=== PATIENT | female | born 1985 | race African-American/Black ===

== ENCOUNTER 2018-01-14 08:05 | Emergency (ER) | payer OTHER | END 2018-01-14 09:09 | disposition home or self-care (01) | LOC: SCSER 08:05 | DX: O99.511 Diseases of the respiratory system complicating pregnancy, first trimester (principal); J06.9 Acute upper respiratory infection, unspecified; Z3A.11 11 weeks gestation of pregnancy | CPT/HCPCS: 87804; 99283 ==

== ENCOUNTER 2018-01-31 11:06 | Emergency (ER) | payer OTHER ==
[2018-01-31 11:34] LABS: Bilirubin Negative (Negative); Blood, Urine Large (Negative); Clarity Clear (Clear); Glucose, Urine (Dipstick) Negative (Negative); Leukocyte Trace (Negative); Nitrite Negative (Negative); Protein, Urine (Dipstick) Negative (Neg-Trace); pH, Urine 6.5 (5.0-9.0)
[2018-01-31 11:46] LABS: Bacteria/HPF None Seen HPF (None Seen); RBC/HPF 0-3 HPF (0-3); WBC/HPF 0-3 HPF (0-3)
--- NOTE | 2018-01-31 14:14 | ULT ---
PELVIC ULTRASOUND: HISTORY: Positive test. Vaginal bleeding with cramping. Symptoms began today. Beta HCG 1727. COMPARISON: None. TECHNIQUE: Transabdominal vaginal imaging of the pelvis is performed. Ovaries were interrogated with lopez scale , color flow, Doppler imaging, and spectral waveform analysis. FINDINGS: The uterus is identified, measuring 12.0 x 5.8 x 6.9 cm. There is a nonspecific 0.9 x 0.7 x 0.9 cm h ypoechoic focus in the posterior left uterine myometrium. Endometrium has a homogeneous echotexture with a diameter of 0.8 cm. There is no evidence of a gestational sac, yolk sac, or pole within the endometrium. There is no free fluid. Right and left ovaries have a normal echotexture. The right ovary measures 1.9 x 3.1 x 3.6 cm. The left ovary measures 2.8 x 2.6 x 1.8 cm. Small Nabothian cyst in the lower uterine segment is noted measuring 1.6 cm. OVARIAN DOPPLER: There is vascular flow to the left and right ovary. IMPRESSION: No sonographic evidence of intrauterine gestation. Differential consideration is fluid or early intr auterine , sonographically occult ectopic , or a missed spontaneous . Foll owup ultrasound with serial beta HCGs is recommended. POS: SON
== END 2018-01-31 14:05 | disposition home or self-care (01) ==
LOC: SCSER 11:06
DX: O20.9 Hemorrhage in early pregnancy, unspecified (principal); Z3A.01 Less than 8 weeks gestation of pregnancy
CPT/HCPCS: 76856; 81003; 81015; 84702; 86900; 86901